=== PATIENT | male | born 1960 ===

== ENCOUNTER 2023-01-08 10:43 | Outpatient (REF) | payer MEDICARE, MEDICAID, SELFPAY | END 2023-01-08 10:44 | disposition home or self-care (01) | LOC: HO.HOSX 10:43 | PROVIDERS: Visit Provider Orthopaedic Surgery | DX: Z13.89 Encounter for screening for other disorder (principal) ==

== ENCOUNTER 2023-07-26 11:50 | Emergency (ER) | payer MEDICARE, MEDICAID, SELFPAY ==
[2023-07-26 11:57] VITALS: BP 156/91; PULSE 63; RESP 18; TEMP 36.5; O2SAT 100; BMI 28.8
--- NOTE | 2023-07-26 11:59 | ED_ITS ---
HPI - General Adult General Chief complaint: Abdominal Pain Stated complaint: abdominal pain Time Seen by Provider: 07/26/23 14:08 Related Data Allergies Allergy/AdvReac Type Severity Reaction Status Date / Time No Known Allergies Allergy Verified 07/26/23 11:57 [facility] Social History Social History Advance Directives: No Advance Directives Information Provided: No Physical Exam ED Vital Signs: Vital Signs - 24 hr 07/26/23 11:57 Temperature 97.7 F Pulse Rate 63 Respiratory Rate 18 Blood Pressure 156/91 H Pulse Oximetry 100 Oxygen Delivery Method Room Air BMI result Body Mass Index 28.8 Course Course Course Narrative: This is an RME performed by Jess Ruiz CNP: Additional HPI, ROS, PE not included below will be deferred to primary provider. Patient is a 63-year-old male who presents emergency department for evaluation of epigastric pain. Onset was 2 days ago, worse after eating. He does admit to having a left total knee replacement approximately 1 month ago and he has been taking Celebrex and aspirin for pain management. Denies vomiting, hematochezia, melena. Appearance: Alert.?Oriented to person, place and time. No acute distress.?Normal affect. ENT: Pharynx normal.?? CVS: Heart sounds normal. Normal heart rate and rhythm.? Pulses normal.?? Respiratory: No respiratory distress.? Lung sounds clear to auscultation bilaterally?? Abdomen: Soft and non-tender. Normoactive bowel sounds. No pulsatile mass.?? Skin: Skin warm and dry.? Normal skin color.? Plan; serum labs, trial GI cocktail, suspect gastritis secondary to NSAID Reevaluation(s) Reevaluation #1: Patient's family member became upset while in the waiting room, expressing frustration over wait time of 1 hour. Provided reassurance that we are doing our best to make bed availability, would like to trial GI cocktail symptoms most concerning for gastritis at this time no concerning findings on serum labs thus far. She began yelling at security in the waiting room, and decided to leave without completing treatment at this time Time: 13:02 Medical Decision Making Lab Data 07/26/23 12:10 07/26/23 12:10 Labs: Lab Results 07/26/23 Range/Units 12:10 WBC 8.5 (4.8-10.8) X10*3/uL RBC 4.11 L (4.60-5.80) X10*6/uL Hgb 13.4 L (14.0-18.0) g/dl Hct 38.3 L (42.0-52.0) % MCV 93.2 (80.0-98.0) fL MCH 32.6 (27.0-33.0) pg MCHC 35.0 (31.0-36.0) g/dl RDW 13.2 (11.0-16.0) % Plt Count 201 (160-400) X10*3/uL MPV 10.3 (9.4-12.4) fL Immature Gran % (Auto) 0.2 (0.0-0.4) % Neut % (Auto) 78.1 H (45-73) % Lymph % (Auto) 17.7 L (20-40) % [place] % (Auto) 3.4 (2-11) % Eos % (Auto) 0.4 (0-4) % Baso % (Auto) 0.2 (0-2) % Lymph # (Auto) 1.5 (1.2-4.9) X10*3/uL [place] # (Auto) 0.3 (0.1-1.2) X10*3/uL Eos # (Auto) 0.0 (0.0-0.4) X10*3/uL Baso # (Auto) 0.0 (0.0-0.2) X10*3/uL Abs Immat Gran (auto) 0.02 (0.00-0.03) X10*3/uL Absolute Neuts (auto) 6.6 (2.0-8.3) x10*3/uL Absolute Nucleated RBC 0.000 (0.0-0.012) X10*3/uL Nucleated RBC % (auto) 0.0 (0.0-0.2) /100WBC Sodium 140 (135-145) mmol/L Potassium 4.3 (3.3-5.1) mmol/L Chloride 106 (96-108) mmol/L Carbon Dioxide 24 (22-29) mmol/L Anion Gap 14 (12-20) BUN 11 (9-16) mg/dL Creatinine 0.80 (0.5-1.4) mg/dL Estim Creat Clear Calc 109.9 Estimated GFR > 60 Random Glucose 120 H (60-115) mg/dL Calcium 9.7 (8.4-10.2) mg/dL Total Bilirubin 0.5 (0.0-1.0) mg/dL AST 14 (5-37) U/L ALT 10 (0-40) U/L Alkaline Phosphatase 67 (39-117) U/L Total Protein 7.6 (6.5-8.0) g/dL Albumin 4.4 (3.5-5.0) g/dL Lipase 18 (8-78) U/L Discharge Plan Discharge Clinical Impression: Abdominal pain Patient Disposition: Left W/O Completing Treatment Discharge Date/Time: 07/26/23 14:52
[2023-07-26 12:16] LABS: MANUAL DIFF FLAG NO
[2023-07-26 12:19] LABS: Basophils Percent Auto 0.2 % (0-2); Eosinophils Percent Auto 0.4 % (0-4); Hematocrit 38.3 % (42.0-52.0); Hemoglobin 13.4 g/dl (14.0-18.0); Imm Gran Abs Auto 0.02 X10*3/uL (0.00-0.03); Imm Gran Pct Auto 0.2 % (0.0-0.4); Lymphocytes Absolute Auto 1.5 X10*3/uL (1.2-4.9); Lymphocytes Percent Auto 17.7 % (20-40); Mean Corpuscular Hemoglobin 32.6 pg (27.0-33.0); Mean Corpuscular Volume 93.2 fL (80.0-98.0); Mean Platelet Volume 10.3 fL (9.4-12.4); Monocytes Absolute Auto 0.3 X10*3/uL (0.1-1.2); Monocytes Percent Auto 3.4 % (2-11); Neutrophils Absolute Auto 6.6 x10*3/uL (2.0-8.3); Neutrophils Percent Auto 78.1 % (45-73); Platelet Count 201 X10*3/uL (160-400); Red Blood Count 4.11 X10*6/uL (4.60-5.80); Red Cell Distribution Width 13.2 % (11.0-16.0); White Blood Count 8.5 X10*3/uL (4.8-10.8)
[2023-07-26 12:35] LABS: Alanine Aminotransferase 10 U/L (0-40); Albumin Level 4.4 g/dL (3.5-5.0); Alkaline Phosphatase 67 U/L (39-117); Anion Gap 14 (12-20); Aspartate Amino Transferase 14 U/L (5-37); Bilirubin Total 0.5 mg/dL (0.0-1.0); Blood Urea Nitrogen 11 mg/dL (9-16); Calcium 9.7 mg/dL (8.4-10.2); Carbon Dioxide 24 mmol/L (22-29); Chloride 106 mmol/L (96-108); Creatinine Clr Calc Pharmacy 109.9; Estimated Glomerular Filt Rate > 60; Glucose Random 120 mg/dL (60-115); Lipase 18 U/L (8-78); Potassium 4.3 mmol/L (3.3-5.1); Sodium 140 mmol/L (135-145); Total Protein 7.6 g/dL (6.5-8.0)
== END 2023-07-26 14:52 | disposition left against medical advice (07) ==
PROVIDERS: Nurse Practitioner Family; Emergency Provider Emergency Medicine
DX: R10.13 Epigastric pain (principal); Z53.21 Procedure and treatment not carried out due to patient leaving prior to being seen by health care provider; Z79.82 Long term (current) use of aspirin; Z79.899 Other long term (current) drug therapy
CPT/HCPCS: 36415; 80053; 83690; 85025; 99281; 99283

== ENCOUNTER 2023-08-19 14:00 | Outpatient (RCR) | payer MEDICARE, MEDICAID, SELFPAY ==
[2023-07-13 12:58] VITALS: BP 114/74; PULSE 80; O2SAT 97
== END 2023-10-16 14:31 | disposition home or self-care (01) ==
LOC: HO.PT 14:00
PROVIDERS: PCP Family Medicine; Visit Provider Registered Nurse
DX: Z96.652 Presence of left artificial knee joint (principal)
CPT/HCPCS: 97110; 97112; 97140; 97162; 97530; 97535

== ENCOUNTER 2024-01-06 16:56 | Emergency (ER) | payer OTHER, SELFPAY ==
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
[2024-01-06 17:06] VITALS: BP 119/76; PULSE 79; RESP 16; TEMP 37; O2SAT 94; BMI 30.6
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
[2024-01-06 17:52] LABS: MANUAL DIFF FLAG NO
[2024-01-06 18:06] LABS: Alanine Aminotransferase 30 U/L (0-40); Alkaline Phosphatase 49 U/L (39-117); Anion Gap 14 (12-20); Aspartate Amino Transferase 39 U/L (5-37); Bilirubin Total 0.3 mg/dL (0.0-1.0); Blood Urea Nitrogen 9 mg/dL (9-16); Calcium 8.4 mg/dL (8.4-10.2); Carbon Dioxide 22 mmol/L (22-29); Chloride 109 mmol/L (96-108); Creatinine Clr Calc Pharmacy 96.2; Estimated Glomerular Filt Rate > 60; Glucose Random 93 mg/dL (60-115); Potassium 3.5 mmol/L (3.3-5.1); Sodium 141 mmol/L (135-145); Total Protein 6.7 g/dL (6.5-8.0)
[2024-01-06] MEDS: Acetaminophen 325 MG TABLET 975 MG PO (18:11)
[2024-01-06 18:14] LABS: Basophils Percent Auto 0.4 % (0-2); Eosinophils Percent Auto 0.6 % (0-4); Hematocrit 41.8 % (42.0-52.0); Hemoglobin 14.5 g/dl (14.0-18.0); Imm Gran Abs Auto 0.01 X10*3/uL (0.00-0.03); Imm Gran Pct Auto 0.2 % (0.0-0.4); Lymphocytes Absolute Auto 1.6 X10*3/uL (1.2-4.9); Lymphocytes Percent Auto 30.1 % (20-40); Mean Corpuscular HGB Conc 34.7 g/dl (31.0-36.0); Mean Corpuscular Hemoglobin 31.8 pg (27.0-33.0); Mean Corpuscular Volume 91.7 fL (80.0-98.0); Mean Platelet Volume 10.6 fL (9.4-12.4); Monocytes Absolute Auto 0.4 X10*3/uL (0.1-1.2); Monocytes Percent Auto 6.6 % (2-11); Neutrophils Absolute Auto 3.3 x10*3/uL (2.0-8.3); Neutrophils Percent Auto 62.1 % (45-73); Platelet Count 197 X10*3/uL (160-400); Red Blood Count 4.56 X10*6/uL (4.60-5.80); Red Cell Distribution Width 13.4 % (11.0-16.0); White Blood Count 5.3 X10*3/uL (4.8-10.8)
[2024-01-06 18:56] VITALS: BP 103/65; PULSE 56; RESP 18; TEMP 36.8; O2SAT 95
[2024-01-06] MEDS: iohexoL 350 MG/ML 100 ML INFUS..BTL 85 ML IV (19:22)
--- NOTE | 2024-01-06 20:46 | PC.NURSE ---
pt getting very restless, wants to leave, waiting for ct results. sitting at edge of bed a this time
--- NOTE | 2024-01-06 21:33 | MHC.EDTECH ---
Patient has asked to leave multiple times. Patient has been redirectable and agreed to stay for the CT scan reports to come back to the provider. RN and P[employer] aware
[2024-01-06 22:13] VITALS: BP 129/83; PULSE 62; RESP 18; TEMP 36.6; O2SAT 97
[2024-01-06 22:19] VITALS: BP 129/83; PULSE 62; RESP 18; TEMP 36.6; O2SAT 97
== END 2024-01-06 22:19 | disposition home or self-care (01) ==
PROVIDERS: Nurse Practitioner Family; Emergency Provider Emergency Medicine Emergency Medical Services
DX: S70.12XA Contusion of left thigh, initial encounter (principal); S09.90XA Unspecified injury of head, initial encounter; V23.09XA Other motorcycle driver injured in collision with car, pick-up truck or van in nontraffic accident, initial encounter; Y93.9 Activity, unspecified; Y92.9 Unspecified place or not applicable; Y99.9 Unspecified external cause status; M54.2 Cervicalgia; R10.31 Right lower quadrant pain
CPT/HCPCS: 36415; 70450; 72125; 73502; 74177; 80053; 85025; 99284; 99285; Q9967